=== PATIENT | female | born 1985 | race Caucasian/White ===

== ENCOUNTER 2018-05-24 18:10 | Outpatient (REF) | payer BC, SELFPAY ==
[2018-05-24 22:31] LABS: Bacteria Many HPF (Negative); Epithelial Cells Many HPF (Negative); Other Cells Rare Transitional (Negative); WBC 20-50 HPF (0-5)
[2018-05-24 22:32] LABS: C & S Indicated? No/Sq. Contamination; Crystals Negative HPF (Negative); Mucus Negative (Negative)
== END 2018-05-24 18:30 ==
LOC: NCHCN 18:10
PROVIDERS: PCP Family Medicine; Visit Provider Nurse Practitioner Family
DX: M54.5 Low back pain (principal); R10.9 Unspecified abdominal pain
CPT/HCPCS: 81015

== ENCOUNTER 2018-05-30 00:47 | Outpatient (CLI) | payer BC, SELFPAY ==
--- NOTE | 2018-05-30 08:26 | DI.CT_ITS ---
SYMPTOMS/DIAGNOSIS: SUDDEN ONSET LEFT FLANK PAIN, R10.9, ? NEPHROLITHIASIS ABDOMINAL AND PELVIC CT: CT examination of the abdomen and pelvis was performed without contrast administration. Images obtained through the lung bases are unremarkable. Visualized portions of liver and spleen appear normal, as does the pancreas. Gallbladder and bowel ducts are CT normal. Abdominal aorta is of normal diameter. Small fat-containing umbilical hernia noted. No other significant abdominal wall hernias seen. No evidence of abdominal or pelvic adenopathy. The appendix is normal. No evidence of diverticulitis or bowel obstruction. [employer]GEANT structures appear intact. Adrenals appear normal bilaterally. The left kidney is unremarkable in appearance with no evidence of nephrolithiasis, hydronephrosis or ureterolithiasis. The right kidney contains small nonobstructing calculi. No evidence of right hydronephrosis. No right ureterolithiasis. Urinary bladder appears essentially empty but unremarkable. CONCLUSION: Nonobstructing right nephrolithiasis. No other significant abnormality seen.
== END 2018-05-30 01:07 ==
PROVIDERS: PCP Nurse Practitioner Family; Visit Provider Nurse Practitioner Family
DX: R10.32 Left lower quadrant pain (principal); N20.0 Calculus of kidney
CPT/HCPCS: 74176

== ENCOUNTER 2018-06-21 09:48 | Outpatient (REF) | payer BC, SELFPAY ==
[2018-06-24 11:48] LABS: Sodium, Urine 90 mmol/L
[2018-06-24 11:50] LABS: CLEAVED CELLS 119 mmol/24h (40-220); Total Volume 1325 ml
[2018-06-24 11:53] LABS: Creatinine,Urine 113.68 mg/dL
[2018-06-24 11:58] LABS: Creatinine,24hr Ur 1.48 g/24hr (0.60-1.80); Total Volume 1325 ml
[2018-06-25 09:24] LABS: Magnesium 24hr Urine 82.2 mg/24h (73.0-122.0); Magnesium Random Urine 6.2 mg/dl; Uric Acid Urine 39.7 mg/dl; Uric Acid Urine 24hr 526 mg/24h (250-750)
[2018-06-25 09:31] LABS: Calcium Urine 21.1 mg/dl; Calcium Urine 24 hr 280 mg/24hr (100-300)
== END 2018-06-21 10:08 ==
LOC: NCHCN 09:48
PROVIDERS: PCP Nurse Practitioner Family; Visit Provider Nurse Practitioner Family
DX: N20.0 Calculus of kidney (principal)
CPT/HCPCS: 83735; 81050; 82340; 82570; 84300; 84560

== ENCOUNTER 2018-11-25 00:31 | Outpatient (CLI) | payer BC, SELFPAY ==
--- NOTE | 2018-11-25 14:58 | DI.RAD_ITS ---
SYMPTOMS/DIAGNOSIS: LOW BACK PAIN, M54.9, WORSENING, CHRONIC SINCE FALL LAST YEAR LUMBAR SPINE: Comparison is made with CT of the abdomen and pelvis dated May,. The vertebral bodies are well maintained in height. No spondylolysis or spondylolisthesis is seen. There is L5-S1 disc space narrowing, unchanged from the previous CT. There are minimal osteophytes at this level. The remaining discs are well maintained. IMPRESSION: L5-S1 disc space narrowing.
== END 2018-11-25 00:51 ==
PROVIDERS: PCP Nurse Practitioner Family; Visit Provider Nurse Practitioner Family
DX: M54.5 Low back pain (principal); M51.37 Other intervertebral disc degeneration, lumbosacral region
CPT/HCPCS: 72110

== ENCOUNTER 2018-12-26 14:54 | Outpatient (REF) | payer BC, SELFPAY | END 2018-12-26 15:14 | LOC: NCHCN 14:54 | PROVIDERS: PCP Nurse Practitioner Family; Visit Provider Nurse Practitioner Family | DX: J02.9 Acute pharyngitis, unspecified (principal) | CPT/HCPCS: 87070 ==

== ENCOUNTER 2019-03-11 13:36 | Outpatient (REF) | payer BC, SELFPAY ==
[2019-03-11 22:54] LABS: Abs Immature Grans 0.01 k/cumm (0.0-0.09); Absolute Basophil Count 0.02 k/cumm (0.0-0.2); Absolute Eosinophil Count 0.17 k/cumm (0.0-0.7); Absolute Lymphocyte Count 2.19 k/cumm (1.2-3.4); Absolute Monocyte Count 0.42 k/cumm (0.11-0.7); Absolute Neutrophil Count 3.12 k/cumm (1.2-6.7); Basophils % 0.3; Eosinophils % 2.9; HCT 45.1 % (36.0-46.0); HGB 15.1 g/dL (12.0-15.5); Immature Grans % 0.2; Lymphocytes % 36.9; Mean Corp. HGB Concentration 33.5 g/dL (32.0-36.0); Mean Corpuscular Volume 86.6 fL (80-95); Mean Platelet Volume 11.2 fL (8.0-11.0); Monocytes % 7.1; Neutrophils % 52.6; Platelet Count 255 x1000/uL (130-400); RBC 5.21 m/cumm (4.00-5.20); RBC Distribution Width 13.1 % (11.7-14.6); White Blood Cell Count 5.93 k/cumm (4.4-10.8)
[2019-03-11 23:33] LABS: ALT 36 U/L (12-78); AST 16 U/L (15-37); Alkaline Phosphatase 70 U/L (46-116); Anion Gap 10.7 mmol/L (3-11); BUN 14 mg/dL (7-18); Bilirubin, Total 0.2 mg/dL (0.2-1.0); CO2 25.3 mmol/L (21.0-32.0); CREATININE 0.95 mg/dL (0.55-1.02); Calcium 9.4 mg/dL (8.5-10.1); Chloride 103 mmol/L (98-107); Glucose 94 mg/dL (70-100); Sodium 139 mmol/L (136-145); Total Protein 7.3 g/dL (6.4-8.2)
== END 2019-03-11 13:56 ==
LOC: NCHCN 13:36
PROVIDERS: PCP Nurse Practitioner Family; Visit Provider Nurse Practitioner Family
DX: R51 Headache (principal)
CPT/HCPCS: 80053; 85025

== ENCOUNTER 2019-03-18 15:32 | Outpatient (REF) | payer BC, SELFPAY ==
[2019-03-18 20:09] LABS: ESR 11 mm/hr (0-20)
[2019-03-20 10:57] LABS: Lyme Ab w Rflx to Lyme Confirm Negative
== END 2019-03-18 15:52 ==
LOC: NCHCN 15:32
PROVIDERS: PCP Nurse Practitioner Family; Visit Provider Nurse Practitioner Family
DX: R51 Headache (principal)
CPT/HCPCS: 85652; 86618

== ENCOUNTER 2019-03-24 01:28 | Outpatient (CLI) | payer BC, SELFPAY ==
--- NOTE | 2019-03-24 08:45 | DI.MRI_ITS ---
SYMPTOM/DIAGNOSIS: HEADACHE R51, VISUAL DISTURBANCES/CHANGES BRAIN MRI: 03/24 MRI examination of the brain was performed according to the usual protocol. Ventricular system is normal in appearance. No signal abnormality identified in the brain. There is normal flow void in the [place] vasculature. The orbital and temporal bone structures appear intact. Diffusion weighted imaging is within normal limits with no evidence of cerebral infarction. Susceptibility weighted imaging shows no evidence of hemorrhage. CONCLUSION: Normal brain MRI.
== END 2019-03-24 01:48 ==
PROVIDERS: PCP Nurse Practitioner Family; Visit Provider Nurse Practitioner Family
DX: R51 Headache (principal); H53.9 Unspecified visual disturbance
CPT/HCPCS: 70551

== ENCOUNTER 2019-06-05 14:02 | Outpatient (REF) | payer BC, SELFPAY ==
[2019-06-06 13:46] LABS: Chlamydia Result Negative (Negative); GC Result Negative (Negative); Specimen Description CERVIX
== END 2019-06-05 14:22 ==
LOC: LBN 14:02
PROVIDERS: PCP Nurse Practitioner Family; Visit Provider Nurse Practitioner Family
DX: Z11.3 Encounter for screening for infections with a predominantly sexual mode of transmission (principal)
CPT/HCPCS: 87491; 87591

== ENCOUNTER 2020-01-02 10:25 | Outpatient (REF) | payer BC, SELFPAY ==
[2020-01-02 19:57] LABS: Calculated LDL 68 mg/dL (<100); Cholesterol 129 mg/dL (<200); Glucose 87 mg/dL (74-106); HDL Cholesterol 47 mg/dL (40-60); Triglyceride 72 mg/dL (<150)
== END 2020-01-02 10:45 ==
LOC: NCHCN 10:25
PROVIDERS: PCP Nurse Practitioner Family; Visit Provider Nurse Practitioner Family
DX: Z00.00 Encounter for general adult medical examination without abnormal findings (principal); R05 Cough; J30.2 Other seasonal allergic rhinitis
CPT/HCPCS: 80061; 82947

== ENCOUNTER 2020-06-03 18:27 | Outpatient (REF) | payer BC, SELFPAY ==
[2020-06-08 14:17] LABS: Patient Race White; SARS-CoV-2 RNA Undetected (Undetected); SARS-CoV-2 Specimen Source Nasal
== END 2020-06-03 18:47 ==
LOC: NCHCN 18:27
PROVIDERS: PCP Nurse Practitioner Family; Visit Provider Nurse Practitioner Family
DX: R05 Cough (principal); Z11.59 Encounter for screening for other viral diseases
CPT/HCPCS: U0003

== ENCOUNTER 2020-06-21 12:33 | Outpatient (REF) | payer BC, SELFPAY ==
[2020-06-24 16:58] LABS: Patient Race White; SARS-CoV-2 RNA Undetected (Undetected); SARS-CoV-2 Specimen Source Nasal
== END 2020-06-21 12:53 ==
LOC: NCHCN 12:33
PROVIDERS: PCP Nurse Practitioner Family; Visit Provider Nurse Practitioner Family
DX: R53.83 Other fatigue (principal); J02.9 Acute pharyngitis, unspecified
CPT/HCPCS: U0003; 87081

== ENCOUNTER 2020-11-10 12:42 | Outpatient (REF) | payer BC, SELFPAY ==
[2020-11-10 17:44] LABS: Abs Immature Grans 0.02 10^3/uL (0.0-0.06); Absolute Basophil Count 0.02 10^3/uL (0.0-0.2); Absolute Eosinophil Count 0.17 10^3/uL (0.0-0.7); Absolute Lymphocyte Count 1.86 10^3/uL (1.2-3.4); Absolute Monocyte Count 0.31 10^3/uL (0.1-0.8); Absolute Neutrophil Count 5.26 10^3/uL (1.2-6.7); Basophils % 0.3; Eosinophils % 2.2; HCT 43.5 % (36.0-46.0); HGB 14.8 g/dL (11.2-15.7); Immature Grans % 0.3; Lymphocytes % 24.3; MCH 29.5 pg (27.0-33.0); MCV 86.7 fL (80-95); MPV 10.9 fL (8.0-11.0); Monocytes % 4.1; Neutrophils % 68.8; Nucleated RBC 0 %; Platelet Count 235 10^3/uL (130-400); RBC 5.02 10^6/uL (3.93-5.22); RDW 12.2 % (11.7-14.6); RDW-SD 38.7 fL; WBC 7.64 10^3/uL (4.4-10.8)
[2020-11-10 18:17] LABS: Hemoglobin A1C 5.3 % (<5.7)
[2020-11-11 04:40] LABS: Vitamin D 25 Total 14.7 ng/mL (30-100)
== END 2020-11-10 12:43 | disposition home or self-care (01) ==
LOC: NCHCN 12:42
PROVIDERS: PCP Nurse Practitioner Family; Visit Provider Nurse Practitioner Family
DX: R53.83 Other fatigue (principal); F41.9 Anxiety disorder, unspecified
CPT/HCPCS: 82306; 83036; 84443; 85025

== ENCOUNTER 2021-03-28 13:33 | Outpatient (CLI) | payer BC, SELFPAY ==
[2021-03-28 12:10] LABS: Kit/Specimen SENT
[2021-03-28 12:20] LABS: Abs Immature Grans 0.03 10^3/uL (0.0-0.06); Absolute Basophil Count 0.01 10^3/uL (0.0-0.2); Absolute Eosinophil Count 0.15 10^3/uL (0.0-0.7); Absolute Lymphocyte Count 1.87 10^3/uL (1.2-3.4); Absolute Monocyte Count 0.32 10^3/uL (0.1-0.8); Absolute Neutrophil Count 5.49 10^3/uL (1.2-6.7); Basophils % 0.1; Eosinophils % 1.9; HGB 13.4 g/dL (11.2-15.7); Immature Grans % 0.4; Lymphocytes % 23.8; MCH 29.8 pg (27.0-33.0); MCHC 33.5 % (32.0-36.0); MCV 89.1 fL (80-95); MPV 10.2 fL (8.0-11.0); Monocytes % 4.1; Neutrophils % 69.7; Nucleated RBC 0 %; Platelet Count 189 10^3/uL (130-400); RBC 4.49 10^6/uL (3.93-5.22); RDW 12.7 % (11.7-14.6); RDW-SD 41.6 fL; WBC 7.87 10^3/uL (4.4-10.8)
[2021-03-28 12:21] LABS: Glucose,1 Hr (Glucola) 254 mg/dL (80-140)
[2021-03-28 14:44] LABS: TSH (W/Ref FT4) 1.83 uIU/mL (0.36-3.74)
[2021-03-29 09:01] LABS: Hepatitis C Ab w Rflx HCV PCR Negative (Negative)
[2021-03-29 11:23] LABS: Rubella IgG Ab (UVM) Positive (See Note); Varicella IgG Antibody Positive (See Note)
[2021-03-29 12:03] LABS: Hepatitis B Surface Ag Negative (Negative)
[2021-03-29 12:37] LABS: HIV-1/2 Ag & Ab Screen Negative (Negative)
[2021-03-31 10:11] LABS: Syphilis Total Ab w/Reflex Nonreactive (Nonreactive)
[2021-04-01 15:15] LABS: Result Summary NEGATIVE; Specimen WB Whole Blood
== END 2021-03-28 13:34 | disposition home or self-care (01) ==
LOC: LBO 13:35
PROVIDERS: PCP Nurse Practitioner Family; Visit Provider Advanced Practice Midwife
DX: O99.341 Other mental disorders complicating pregnancy, first trimester (principal); F41.9 Anxiety disorder, unspecified; Z11.4 Encounter for screening for human immunodeficiency virus [HIV]; Z11.59 Encounter for screening for other viral diseases; Z01.84 Encounter for antibody response examination; Z3A.12 12 weeks gestation of pregnancy; Z36.89 Encounter for other specified antenatal screening
CPT/HCPCS: 82950; 86787; 86803; 86850; 86900; 86901; 87340; 87389; 81220; 84443; 85025; 86762; 86780; 87480; 87510; 87660

== ENCOUNTER 2021-03-28 17:52 | Outpatient (REF) | payer BC, SELFPAY ==
[2021-03-28 17:17] LABS: *AMPHETAMINES SCREEN URINE Negative (Negative); *BARBITURATES SCREEN URINE Negative (Negative); *BENZODIAZEPINES SCREEN URINE Negative (Negative); Cannabinoids THC Negative (Negative); Cocaine Screen,Urine Negative (Negative); METHADONE URINE SCREEN Negative (Negative); OPIATES URINE SCREEN Negative (Negative)
[2021-03-28 17:30] LABS: Tricyclic Antidepressants Negative (Negative)
[2021-03-29 15:28] LABS: Chlamydia Result Negative (Negative); GC Result Negative (Negative)
[2021-04-01 13:15] LABS: Buprenorphine Negative ng/mL (Cutoff: 5.0); Norbuprenorphine Negative ng/mL (Cutoff: 2.5)
== END 2021-03-28 17:53 | disposition home or self-care (01) ==
LOC: LBN 17:52
PROVIDERS: PCP Nurse Practitioner Family; Visit Provider Advanced Practice Midwife
DX: Z34.91 Encounter for supervision of normal pregnancy, unspecified, first trimester (principal); Z11.3 Encounter for screening for infections with a predominantly sexual mode of transmission; Z3A.12 12 weeks gestation of pregnancy
CPT/HCPCS: 80307; 87491; 87591; 87086

== ENCOUNTER 2021-04-01 15:21 | Outpatient (CLI) | payer BC, SELFPAY ==
[2021-04-01 16:13] LABS: Hemoglobin A1C 5.3 % (<5.7)
== END 2021-04-01 15:22 | disposition home or self-care (01) ==
LOC: LBO 15:22 → LBN 19:58
PROVIDERS: PCP Nurse Practitioner Family; Visit Provider Obstetrics & Gynecology
DX: O24.911 Unspecified diabetes mellitus in pregnancy, first trimester; Z3A.13 13 weeks gestation of pregnancy
CPT/HCPCS: 36415; 83036; 87086

== ENCOUNTER 2021-04-08 01:42 | Outpatient (CLI) | payer BC, SELFPAY ==
--- NOTE | 2021-04-08 14:00 | NS.NUTBLAN_ITS ---
Jocelyn was referred for Medical Nutrition Therapy fr GDM at 14 weeks. Most recent A1C wnl indicating optimal glycemic control prior to . No family hx of DM. Jocelyn has logged her meals and blood sugars. Some elevated post prandial levels noted but overall well controlled with diet and exercise. Session today focused on how to follow a well balanced meal plan during and how/when to measure blood sugars. Meal plans provided. Encoruaged daily walking of 20-30 minutes. Contact information provided for follow up prn. Will be available as needed.
== END 2021-04-08 01:43 | disposition home or self-care (01) ==
LOC: DS 01:42
PROVIDERS: PCP Nurse Practitioner Family; Visit Provider Dietitian, Registered
DX: O24.420 Gestational diabetes mellitus in childbirth, diet controlled (principal); Z3A.14 14 weeks gestation of pregnancy; Z71.3 Dietary counseling and surveillance
CPT/HCPCS: 97802

== ENCOUNTER 2021-07-15 01:07 | Outpatient (CLI) | payer BC, SELFPAY ==
[2021-07-15 16:32] LABS: HCT 38.4 % (36.0-46.0); MCH 30.4 pg (27.0-33.0); MCHC 33.9 % (32.0-36.0); MCV 89.9 fL (80-95); MPV 9.9 fL (8.0-11.0); Platelet Count 181 10^3/uL (130-400); RBC 4.27 10^6/uL (3.93-5.22); RDW 12.7 % (11.7-14.6); RDW-SD 41.7 fL
== END 2021-07-15 01:08 | disposition home or self-care (01) ==
LOC: LBO 01:07
PROVIDERS: PCP Nurse Practitioner Family; Visit Provider Obstetrics & Gynecology Gynecology
DX: Z34.93 Encounter for supervision of normal pregnancy, unspecified, third trimester (principal)
CPT/HCPCS: 36415; 85027

== ENCOUNTER 2021-07-28 02:22 | Outpatient (CLI) | payer BC, SELFPAY ==
--- NOTE | 2021-07-28 07:00 | DI.US_ITS ---
Exam(s) US OB MAREK WEIGHT EXAM: US OB MAREK WEIGHT CLINICAL HISTORY: diabetes in ,o24.919. TECHNIQUE: Transabdominal obstetrical ultrasound performed. COMPARISON: US US OB 2-3 TRIMESTER from 05/13/2021 FINDINGS:: Number of fetuses: One. position: Vertex. Placental location: Anterior. No evidence of previa. BIOMETRIC DATA: BPD: 79mm = 31+4 weeks HC: 294mm = 32+3 week AC: 271mm = 31+1 weeks FL: 59 mm = 30+ 6 weeks EFW: 1726 Gms = 66% Composite Age: 31 weeks 4 days EDC: 25 September 2021 Heart Rate: 139BPM Amniotic fluid index: 17.7 cm. Amount of fluid is within normal limits. IMPRESSION: size and weight are within the expected range. DATA REPOSITORY:
== END 2021-07-28 02:42 ==
PROVIDERS: PCP Nurse Practitioner Family; Visit Provider Obstetrics & Gynecology
DX: O24.913 Unspecified diabetes mellitus in pregnancy, third trimester (principal); Z3A.31 31 weeks gestation of pregnancy
CPT/HCPCS: 76816

== ENCOUNTER 2021-08-29 01:50 | Outpatient (CLI) | payer BC, SELFPAY ==
--- NOTE | 2021-08-29 08:15 | DI.US_ITS ---
Exam(s) US OB MAREK WEIGHT EXAM: US OB MAREK WEIGHT CLINICAL HISTORY: size greater than dates,z34.03. TECHNIQUE: Transabdominal obstetrical ultrasound was performed. COMPARISON: US US OB MAREK WEIGHT from 07/28/2021 FINDINGS: There is a single viable intrauterine gestation with cardiac activity identified- bpm The fetus is presently in cephalic position with spine pointing posteriorly towards the materna l spine. Amniotic fluid: There is mild polyhydramnios, with MAREK= 25.4 cm. Placental location: The placenta is anterior grade 2,with no evidence of placenta previa.Distance fro m the tip of placenta to the internal cervical os is 10 cm on today's study Dating parameters place this at approximately 36 weeks and 5 days gestational age, implying ABY of September 21, 2021. BPD measures 36 weeks and 4 days HC measures 39 weeks and 0 days AC measures 36 weeks and 1 day FL measures not given Estimated weight is 2853 gm-6 pound 5 ounces Fetus is at the 78th percentile on the Hadlock scale. IMPRESSION:: Viable 3rd trimester gestation, as described above. Fetus is at the 78th percentile the Hadlock scale DATA REPOSITORY:
== END 2021-08-29 02:10 ==
PROVIDERS: PCP Nurse Practitioner Family; Visit Provider Obstetrics & Gynecology Gynecology
DX: Z3A.36 36 weeks gestation of pregnancy; O40.3XX0 Polyhydramnios, third trimester, not applicable or unspecified; O26.843 Uterine size-date discrepancy, third trimester
CPT/HCPCS: 76816

== ENCOUNTER 2021-09-08 07:51 | Outpatient (CLI) | payer BC, SELFPAY ==
[2021-09-08 13:29] VITALS: BP 122/80; PULSE 82; TEMP 36.7
[2021-09-08 13:51] VITALS: BP 122/80; PULSE 82; TEMP 36.7
--- NOTE | 2021-09-08 14:09 | W.OBNST ---
Date of service: 09/08/21 Time of Service: 14:10 NST Evaluation Reason for NST Reasons for Nonstress Test: GDM-DIET CONTROLLED Gestational Age Gestational Age in Weeks and Days: 36 Weeks and 2Days Test and Monitor Explained Test/Monitor Explained: Test Explained, Monitor Explained and Patient Verbalized Understanding Vital Signs Blood Pressure: 122/80 Pulse: 82 Temperature: 98.0 F NST Information Date on Monitor: 09/08/21 Time on Monitor: 13:29 Date off Monitor: 09/08/21 Time off Monitor: 13:50 Total Time on Monitor: 21 NST Interventions: PO Hydration Contraction Frequency: irritability, contractions Q6-8 NST Evaluation Patient States Movement: Present FHR Baseline: 150 Variability: Moderate 6-25 bpm Accelerations: 15x15 Decelerations: None NST Results: Reactive Note NST Note Note: Reactive NST, category 1 strip. Occasional irregular contractions. Group B strep culture performed. Follow-up for twice weekly surveillance and weekly OB visits NST Reviewed and Verified by: Magy Espinoza
[2021-09-08 14:10] VITALS: BP 122/80; PULSE 82; TEMP 36.7
== END 2021-09-08 14:06 | disposition home or self-care (01) ==
LOC: BCD 07:55 → OBS 13:25
PROVIDERS: PCP Nurse Practitioner Family; Visit Provider Obstetrics & Gynecology
DX: O24.410 Gestational diabetes mellitus in pregnancy, diet controlled (principal); Z36.85 Encounter for antenatal screening for Streptococcus B; Z3A.36 36 weeks gestation of pregnancy
CPT/HCPCS: 59025

== ENCOUNTER 2021-09-08 18:14 | Outpatient (REF) | payer BC, SELFPAY | END 2021-09-08 18:15 | disposition home or self-care (01) | LOC: LBN 18:14 | PROVIDERS: PCP Nurse Practitioner Family; Visit Provider Obstetrics & Gynecology | DX: Z34.93 Encounter for supervision of normal pregnancy, unspecified, third trimester (principal) | CPT/HCPCS: 87081 ==

== ENCOUNTER 2021-09-12 15:21 | Outpatient (CLI) | payer BC, SELFPAY ==
[2021-09-12 15:34] VITALS: BP 117/76; PULSE 89; TEMP 36.8
[2021-09-12 16:21] VITALS: BP 117/76; PULSE 89; TEMP 36.8
--- NOTE | 2021-09-12 16:21 | W.OBNST ---
Date of service: 09/12/21 Time of Service: 16:21 NST Evaluation Reason for NST Reasons for Nonstress Test: GDM-DIET CONTROLLED Gestational Age Gestational Age in Weeks and Days: 36 Weeks and 6Days Test and Monitor Explained Test/Monitor Explained: Test Explained, Monitor Explained and Patient Verbalized Understanding Vital Signs Blood Pressure: 117/76 Pulse: 89 Temperature: 98.2 F NST Information Date on Monitor: 09/12/21 Time on Monitor: 15:19 Date off Monitor: 09/12/21 Time off Monitor: 15:53 Total Time on Monitor: 34 NST Interventions: PO Hydration NST Evaluation Patient States Movement: Present FHR Baseline: 145 Variability: Moderate 6-25 bpm Accelerations: 15x15 NST Results: Reactive Note NST Note Note: Reactive NST, category 1 strip. Follow-up for twice weekly nonstress test. NST Reviewed and Verified by: Magy Espinoza
== END 2021-09-12 16:12 | disposition home or self-care (01) ==
LOC: BCD 15:22 → OBS 15:33
PROVIDERS: PCP Nurse Practitioner Family; Visit Provider Obstetrics & Gynecology
DX: O24.410 Gestational diabetes mellitus in pregnancy, diet controlled (principal); Z3A.36 36 weeks gestation of pregnancy
CPT/HCPCS: 59025

== ENCOUNTER 2021-09-16 06:49 | Outpatient (CLI) | payer BC, SELFPAY ==
[2021-09-16 10:14] VITALS: BP 113/76; PULSE 86; TEMP 37.1
[2021-09-16 10:20] VITALS: BP 113/76; PULSE 86
[2021-09-16 10:38] VITALS: BP 113/76; PULSE 86; TEMP 37.1
[2021-09-16 11:08] LABS: HCT 38.7 % (36.0-46.0); MCHC 33.6 % (32.0-36.0); MCV 92.4 fL (80-95); MPV 10.3 fL (8.0-11.0); Platelet Count 158 10^3/uL (130-400); RBC 4.19 10^6/uL (3.93-5.22); RDW 13.5 % (11.7-14.6); RDW-SD 46.1 fL
[2021-09-16 11:20] LABS: COMMENT (LAB VIEW ONLY) 74.66 mg/dL; PROTEIN 10.1 mg/dL; Prot/Crea Ur Ratio 0.13
[2021-09-16 11:23] LABS: ALT 32 U/L (14-59); AST 25 U/L (15-37); Albumin 2.4 g/dL (3.4-5.0); Alkaline Phosphatase 131 U/L (46-116); Anion Gap 8.5 mmol/L (3-11); BUN 12 mg/dL (7-18); Bilirubin, Total 0.2 mg/dL (0.2-1.0); CO2 21.5 mmol/L (21.0-32.0); CREATININE 0.7 mg/dL (0.55-1.02); Calcium 8.6 mg/dL (8.5-10.1); Chloride 103 mmol/L (98-107); Glucose 94 mg/dL (74-106); Potassium 3.8 mmol/L (3.5-5.1); Sodium 133 mmol/L (136-145); Uric Acid 3.8 mg/dL (2.6-6.0)
--- NOTE | 2021-09-16 11:26 | W.OBNST ---
Date of service: 09/16/21 Time of Service: 11:26 NST Evaluation Reason for NST Reasons for Nonstress Test: GDM-DIET CONTROLLED Gestational Age Gestational Age in Weeks and Days: 37 Weeks and 4Days Test and Monitor Explained Test/Monitor Explained: Test Explained, Monitor Explained and Patient Verbalized Understanding Vital Signs Blood Pressure: 113/76 Pulse: 86 Temperature: 98.7 F Urine Results Urine Protein: Positive Urine Ketones: Positive Urine Glucose: Negative Urine Blood: Negative NST Information Date on Monitor: 09/16/21 Time on Monitor: 10:17 Date off Monitor: 09/16/21 Time off Monitor: 10:38 Total Time on Monitor: 21 NST Interventions: PO Hydration and Notify Provider Contraction Frequency: x1 NST Evaluation Patient States Movement: Present FHR Baseline: 140 Variability: Moderate 6-25 bpm Accelerations: 15x15 Decelerations: None NST Results: Reactive Note NST Note Note: Reactive NST, category 1 strip. NST Reviewed and Verified by: Magy Espinoza
[2021-09-16 11:27] VITALS: BP 113/76; PULSE 86; TEMP 37.1
[2021-09-17 03:21] VITALS: BP 131/86; PULSE 72
== END 2021-09-16 11:34 | disposition home or self-care (01) ==
LOC: BCD 06:52 → NUR 10:11 → OBS 10:12
PROVIDERS: PCP Nurse Practitioner Family; Visit Provider Obstetrics & Gynecology
DX: O24.415 Gestational diabetes mellitus in pregnancy, controlled by oral hypoglycemic drugs (principal); Z3A.37 37 weeks gestation of pregnancy
CPT/HCPCS: 59025; 36415; 80053; 85027; 86900; 86901; 82565; 84156; 84550

== ENCOUNTER 2021-09-20 10:22 | Outpatient (CLI) | payer BC, SELFPAY ==
[2021-09-20 15:05] VITALS: BP 119/80; PULSE 89; TEMP 36.8
[2021-09-20 15:10] VITALS: BP 119/80; PULSE 81
[2021-09-20 15:13] VITALS: BP 119/80; PULSE 89; TEMP 36.8
[2021-09-20 15:32] VITALS: BP 119/80; PULSE 89; TEMP 36.8
--- NOTE | 2021-09-20 15:32 | W.OBNST ---
Date of service: 09/20/21 Time of Service: 15:32 NST Evaluation Reason for NST Reasons for Nonstress Test: GDM-DIET CONTROLLED Gestational Age Gestational Age in Weeks and Days: 38 Weeks and 0Days Test and Monitor Explained Test/Monitor Explained: Test Explained, Monitor Explained and Patient Verbalized Understanding Vital Signs Blood Pressure: 119/80 Pulse: 89 Temperature: 98.2 F NST Information Date on Monitor: 09/20/21 Time on Monitor: 15:00 NST Interventions: PO Hydration NST Evaluation Patient States Movement: Present FHR Baseline: 145 Variability: Moderate 6-25 bpm Accelerations: 15x15 Decelerations: None NST Results: Reactive Note NST Note Note: NST reactive, category 1 strip. Continue surveillance. NST Reviewed and Verified by: Magy Espinoza
== END 2021-09-20 15:35 | disposition home or self-care (01) ==
LOC: LBN 10:24 → BCD 10:30 → OBS 14:46
PROVIDERS: PCP Nurse Practitioner Family; Visit Provider Obstetrics & Gynecology
DX: O24.410 Gestational diabetes mellitus in pregnancy, diet controlled (principal); Z3A.38 38 weeks gestation of pregnancy
CPT/HCPCS: 59025

== ENCOUNTER 2021-09-22 08:59 | Outpatient (CLI) | payer BC, SELFPAY ==
[2021-09-22 14:35] VITALS: BP 113/78; PULSE 90; TEMP 36.8
[2021-09-22 14:58] VITALS: BP 113/78; PULSE 90; TEMP 36.8
--- NOTE | 2021-09-27 16:42 | W.OBNST ---
Date of service: 09/22/21 Time of Service: 16:42 NST Evaluation Reason for NST Reasons for Nonstress Test: CHRONIC MATERNAL DM Gestational Age Gestational Age in Weeks and Days: 39 Weeks and 0Days Test and Monitor Explained Test/Monitor Explained: Patient Verbalized Understanding Vital Signs Blood Pressure: 113/78 Pulse: 90 Temperature: 98.2 F NST Information Date on Monitor: 09/22/21 Time on Monitor: 14:32 Date off Monitor: 09/22/21 Time off Monitor: 15:07 Total Time on Monitor: 35 NST Interventions: PO Hydration and Notify Provider NST Evaluation Patient States Movement: Present FHR Baseline: 140 Variability: Moderate 6-25 bpm Accelerations: 15x15 Decelerations: None NST Results: Reactive Note Presentation NST Note Note: Pt seen on BC for eval of reactive NST. GBS RV Cx obtained. SVE: Vertex presentation confirmed by bedside u/s. station -3. Plan made for cervical ripening overnight next week with Oxytocin augmentation of labor following day. Will return on Sunday for routine NST. Her glycemic control has been excellent. NST Reviewed and Verified by: Germaine Clark
[2021-09-27 16:43] VITALS: BP 113/78; PULSE 90; TEMP 36.8
== END 2021-09-22 15:30 | disposition home or self-care (01) ==
LOC: BCD 09:06 → OBS 14:56
PROVIDERS: PCP Nurse Practitioner Family; Visit Provider Obstetrics & Gynecology Gynecology
DX: O24.113 Pre-existing type 2 diabetes mellitus, in pregnancy, third trimester (principal); Z3A.39 39 weeks gestation of pregnancy; Z36.85 Encounter for antenatal screening for Streptococcus B
CPT/HCPCS: 59025

== ENCOUNTER 2021-09-27 07:44 | Outpatient (CLI) | payer BC, SELFPAY ==
[2021-09-27 09:17] VITALS: BP 122/84; PULSE 97; TEMP 36.1
[2021-09-27 09:21] VITALS: BP 122/84; PULSE 97
--- NOTE | 2021-09-28 10:20 | W.OBNST ---
Date of service: 09/27/21 Time of Service: 09:00 NST Evaluation Reason for NST Reasons for Nonstress Test: GDM-DIET CONTROLLED Gestational Age Gestational Age in Weeks and Days: 39 Weeks and 0Days Test and Monitor Explained Test/Monitor Explained: Test Explained and Monitor Explained Vital Signs Blood Pressure: 122/84 Pulse: 97 Temperature: 97.0 F Urine Results Urine Protein: Negative Urine Ketones: Positive Urine Glucose: Negative Urine Blood: Negative NST Information Date on Monitor: 09/27/21 Time on Monitor: 09:18 Date off Monitor: 09/27/21 Time off Monitor: 09:46 Total Time on Monitor: 28 NST Interventions: PO Hydration NST Evaluation Patient States Movement: Present FHR Baseline: 150 Variability: Moderate 6-25 bpm Accelerations: 15x15 Decelerations: None NST Results: Reactive Note NST Note Note: 39wks here for NST for DM - very well controlled with diet. Plans induction tomorrow. Cx:/-3, membranes stripped. NST Reviewed and Verified by: Elvira Real
[2021-09-28 10:22] VITALS: BP 122/84; PULSE 97; TEMP 36.1
== END 2021-09-27 10:00 | disposition home or self-care (01) ==
LOC: BCD 07:48 → OBS 09:14
PROVIDERS: PCP Nurse Practitioner Family; Visit Provider Obstetrics & Gynecology
DX: O24.410 Gestational diabetes mellitus in pregnancy, diet controlled (principal); Z3A.39 39 weeks gestation of pregnancy
CPT/HCPCS: 59025

== ENCOUNTER 2021-09-28 19:55 | Inpatient (IN) | payer BC, SELFPAY ==
[2021-09-28 20:26] VITALS: BP 135/83; PULSE 98
--- NOTE | 2021-09-28 21:25 | HPE_ITS ---
Date of service: 09/28/21 Time of Service: 21:25 Assessment and Plan Assessment and plan (1) GBS (group B Streptococcus carrier), +RV culture, currently : Status: Acute Assessment and plan: We will begin prophylactic penicillin when oxytocin infusion is initiated (2) Encounter for induction of labor: Status: Acute Assessment and plan: The plan is to perform cervical ripening using a transcervical balloon catheter overnight and begin oxytocin titration at 6:00 to 2021 OB-HPI Labor/Delivery History of Present Illness Reason for Visit: IUP at 39W1D EGA, diet-controlled GDM Chief Complaint: Scheduled Induction of Labor Indication for Induction: Gestational Diabetes. ABY Calculator Estimated Delivery Date Method Current WG Current Estimate 10/04/21 LMP (Certain) 39w 1d Other Estimates 10/05/21 Ultrasound #1 39w 0d History of Present Expected Delivery Route/Plan - FOB/ - Cem Salazar (first child) Pre-gestational DM dx'ed at 13 weeks Specific Issues/Plan 1. Early glucose test due to BMI 36: 245 = pre-gest DM at 13 wks; - HgbA1C done at 13 wks = 5.3. 1st and 2nd trimester: CBGs nl. - Low dose ASA at 12 weeks due to Nulliparity and BMI 36 - Growth sonos. 08/29/21. EFW 78%tile. Wt 2853gm, 6lb5oz. - NSTs @32wks 2. [place]/CF screen is negative 3. Both pt and FOB are COVID vaccinated 4. BV+ at initial OB; Rx'ed Flagyl 500 mg PO BID x7 days 5. [facility], wears specific [employer] Garment under clothing, plans to remove in delivery 6. Anxiety - 1st trimester-Sertraline 75 mg. 2nd trimester: Sertraline increased 100 mg. Good response. 7. GBS positive Assessment: History Reviewed & Current Narrative: [facility] first trimes ter. Total weight gain during -6lbs. 1st trimester BP 123/89, 3rd trimester BP 113/70. She has had twice weekly NSTs since 36 weeks estimated stational age secondary to diet-controlled gestational diabetes Informed Consent Informed Consent: Induction of Labor (I discussed cervical ripening with Villafuerte balloon followed by oxytocin augmentation) and Risk,Benefits,Alternatives Discussed Review of Systems Eyes Eyes: Reports system reviewed and no additional complaints, except as documented Genitourinary Comments: She reports activity. Occasional contractions. No rupture membranes. PFSH All Active Problems (Updated 09/28/21 @ 21:36 by Germaine Clark MD) Encounter for induction of labor (Acute) GBS (group B Streptococcus carrier), +RV culture, currently (Acute) Encounter for supervision of normal first , third trimester (Acute) Diabetes in (Acute) Right hip pain (Acute) History of low back pain (Acute) Adult BMI 35.0-35.9 kg/sq m (Acute) Nearsightedness (Acute) Anxiety (Chronic) (Acute) Missed menses (Acute) IUD surveillance (Acute) mitchMar 2019 Bee sting allergy (Acute) Migraine (Chronic) Medical History Bee sting allergy IUD surveillance mitchMar 2019 Migraine Surgical History H/O knee surgery [place] teeth extracted Family History (Updated 03/28/21 @ 10:04 by Alicai Cole CNM) Mother VTE (venous thromboembolism) Celiac disease Hypertension Depression Hyperlipidemia Father Depression Hypertension Maternal Grandmother Stroke Social History Smoking/Tobacco Use Status: Never Smoking risk assessment performed?: Yes Alcohol Intake: never Drug use: Never Sexually active: Yes Current gender identity: female Do you feel safe at home: Yes Do you feel safe in your relationship?: Yes Female Reproductive History Menstrual Age of Menarche: 14 Duration of menses: 3-5 days control method: none History History 1 Para 0 Hx # Term Pregnancies 0 Multiple births 0 Hx # Pregnancies 0 Ectopic pregnancies 0 AB induced 0 Hx Number of Living Children 0 AB spontaneous 0 Meds Allergies and Home Medications Allergies Allergy/AdvReac Type Severity Reaction Status Date / Time gluten Allergy Verified 08/26/21 13:59 venom-honey bee Allergy Verified 08/26/21 13:59 avocado AdvReac Topical Verified 08/26/21 13:59 Irritation wasps Allergy Uncoded 08/26/21 13:59 Home Medications Medication Instructions Recorded Confirmed Type epinephrine 0.3 mg/0.3 mL 0.3 mg IM ONCE 03/12/19 09/24/21 History injection, auto-injector vitamin with calcium 1 tab PO DAILY #90 tab 02/09/21 09/24/21 Rx no.72-iron 27 mg-folic acid 1 mg tablet ( Plus (calcium carbonate)) aspirin 81 mg tablet,delayed 81 mg PO DAILY #90 tab 03/28/21 09/24/21 Rx release (Adult Low Dose Aspirin) blood sugar diagnostic (Blood #50 ea 03/28/21 09/24/21 Rx Glucose Test) blood-glucose meter #1 ea 03/28/21 09/24/21 Rx sertraline 50 mg tablet 100 mg PO DAILY #60 tab 05/06/21 09/24/21 Rx blood sugar diagnostic (OneTouch #100 ea 05/23/21 09/24/21 Rx Verio test strips) cholecalciferol (vitamin D3) 25 25 mcg PO DAILY 06/21/21 09/24/21 History mcg (1,000 unit) capsule magnesium oxide 400 mg (241.3 mg 400 mg PO QHS tab 06/21/21 09/24/21 History magnesium) tablet lancets 28 gauge (FreeStyle #100 ea 07/05/21 09/24/21 Rx Lancets) Exam Physical Exam Vital signs: Pulse BP 98 H 135/83 09/28/21 20:26 09/28/21 20:26 Constitutional Constitutional: no acute distress Detailed Labor and Delivery Exam Dilation: 0 Effacement (%): 80 station: -3 Cervix position: posterior Consistency: soft Randle Score: Cervical Points Exam 0 1 2 3 Dilation Closed 1-2cm 3-4 cm 5-6cm Effacement 0-30% 40-50% 60-70% 80% Consistency Firm Medium Soft Station -3 -2 -1,0 +1,+2 Position Posterior Mid Anterior RANDLE Score(Cervical Ripeness Score): 4 Amniotic Membrane Status: Intact Monitor Mode: External Contraction Frequency(min): Occasional Contraction Duration(sec): 50 Contraction Intensity: Mild Fetus A Heart Rate Baseline: 170 Monitor Accelerations: 15 X 15 Monitor Decelerations: None Variability: Moderate (6-25 BPM) Presentation: Cephalic (Can confirmed by bedside ultrasound) Categories: Category I Est. Weight: 8 lb 13.096 oz Est. Weight: 4000 g Results Results Group Beta Strep: Positive Blood Type: O+ Rubella Status: Immune Varicella Immunity: Immune Risk Assessment Risk for Shoulder Dystocia Historical/Initial OB: POSITIVE FOR: Pre- BMI>30; NEGATIVE FOR: Pelvic Abnormality, Previous Shoulder Dystocia or Previous Macrosomia Delivery Plan @ 36wks: 09/08/21 anticipate vaginal delivery at term Risk for Pre-Eclampsia Date Initiated/Initials: 03/28/21 KH Yes, if one or more: NEGATIVE FOR: Hx Pre-E/Gest HTN, Chronic HTN, Multiple Gestation, Pre-gestational DM, Renal Disease, Systemic Lupus or APA Syndrome Yes, if 2 or more: POSITIVE FOR: Nulliparity and BMI>30; NEGATIVE FOR: Age>= 35 yrs, >10yr btwn pregnancies, ethinicty, Mother/Sister w/ Pre-E or Previous IUGR Risk for Post- Hemorrhage Initial: NEGATIVE FOR: Multiple Gestation, Previous PPH, Known Clotting Deficiency, Grand Multiparity or Anticoagulation Counseled re: Active Management: Yes Date/Initials: 09/08/21 Risks Reviewed Risks Reviewed Upon Admission: Yes
[2021-09-28 21:30] VITALS: BP 135/83; PULSE 98; RESP 18; TEMP 36.7; O2SAT 99
--- NOTE | 2021-09-28 21:38 | W.PM.OBNL1 ---
Date of service: 09/28/21 Time of Service: 21:38 Informed Consent Informed Consent: Induction of Labor (I discussed cervical ripening with Villafuerte balloon followed by oxytocin augmentation) and Risk,Benefits,Alternatives Discussed Objective Temp Pulse Resp BP Pulse Ox 98.1 F 98 H 18 135/83 99 09/28/21 21:30 09/28/21 21:30 09/28/21 21:30 09/28/21 21:30 09/28/21 21:30 Procedure Procedures: Cervical Ripening (Double transcervical-balloon placed without difficulty and both balloons inflated 80 cc H2O) Cervical Ripening: Villafuerte Bulb
[2021-09-28 22:00] LABS: HCT 39.8 % (36.0-46.0); HGB 13.5 g/dL (11.2-15.7); MCH 31.5 pg (27.0-33.0); MCHC 33.9 % (32.0-36.0); MCV 92.8 fL (80-95); MPV 10.4 fL (8.0-11.0); Platelet Count 168 10^3/uL (130-400); RBC 4.29 10^6/uL (3.93-5.22); RDW 13.5 % (11.7-14.6); RDW-SD 45.7 fL; WBC 7.94 10^3/uL (4.4-10.8)
[2021-09-28 22:16] LABS: COVID-19 PCR Negative (Negative); Source Nasal/Nares
[2021-09-29] VITALS (31 sets, daily range): BP systolic 105–130; BP diastolic 58–84; PULSE 86–128; RESP 16–18; TEMP 36.2–36.7; O2SAT 89–100; BMI 34.7
[2021-09-29] MEDS: Penicillin G POT. 5,000,000 UNITS in Normal Saline 100 ML 200 UNITS IVPB (06:05)
[2021-09-29] MEDS: Oxytocin/Normal Saline 30 UNIT/500 ML BAG 2 UNITS IV (06:20)
[2021-09-29] MEDS: Lactated Ringers 1,000 ML 125 ML IV ×2 (06:33→12:23)
--- NOTE | 2021-09-29 10:28 | W.PM.PROGNOT ---
Date of Service Date of service: 09/29/21 Time of Service: 10:28 Assessment and Plan Assessment and plan (1) Encounter for induction of labor: Status: Acute Assessment and plan: Continue pitocin and monitoring. Position changes. Subjective Subjective Interval history since last seen: Pt with only slight discomfort with contractions. Sitting on birthing ball and feels more comfortable in that position. On pit. Villafuerte balloon removed at 8:20 and pt was 5cm dilated already. Exam Manual OB Exam: dilated 6, effaced (90%), station -2 and other (AROM with copious clear fluid) Objective Last Vital Signs Temp 98.1 F 09/29/21 08:52 Pulse 91 H 09/29/21 08:52 Resp 16 09/29/21 08:52 BP 105/68 09/29/21 08:52 Pulse Ox 99 09/28/21 21:30 Laboratory Results - last 24 hr 09/28/21 09/28/21 09/28/21 21:17 21:45 21:45 WBC 7.94 RBC 4.29 Hgb 13.5 Hct 39.8 MCV 92.8 MCH 31.5 MCHC 33.9 RDW 13.5 Plt Count 168 MPV 10.4 COVID-19 Source Nasal/Nares SARS-CoV-2 (PCR) Negative Patient ABO/Rh O Positive Antibody Screen NEGATIVE
[2021-09-29] MEDS: Penicillin G POT. 3,000,000 UNITS in Normal Saline 50 ML 100 UNITS IVPB (10:55)
--- NOTE | 2021-09-29 11:34 | W.ANESPRE ---
General Info Date of Service Date Performed: 09/29/21 Height: 5 ft 4 in Weight: 91.626 kg Body Mass Index (BMI): 34.7 Meds Allergies and Home Medications Allergies Allergy/AdvReac Type Severity Reaction Status Date / Time gluten Allergy Verified 09/28/21 21:38 venom-honey bee Allergy Verified 09/28/21 21:38 avocado AdvReac Topical Verified 09/28/21 21:38 Irritation wasps Allergy Uncoded 09/28/21 21:38 Home Medication Medication Instructions Recorded epinephrine 0.3 mg/0.3 mL 0.3 mg IM ONCE 03/12/19 injection, auto-injector vitamin with calcium 1 tab PO DAILY #90 tab 02/09/21 no.72-iron 27 mg-folic acid 1 mg tablet ( Plus (calcium carbonate)) aspirin 81 mg tablet,delayed 81 mg PO DAILY #90 tab 03/28/21 release (Adult Low Dose Aspirin) blood sugar diagnostic (Blood #50 ea 03/28/21 Glucose Test) blood-glucose meter #1 ea 03/28/21 sertraline 50 mg tablet 100 mg PO DAILY #60 tab 05/06/21 blood sugar diagnostic (OneTouch #100 ea 05/23/21 Verio test strips) cholecalciferol (vitamin D3) 25 25 mcg PO DAILY 06/21/21 mcg (1,000 unit) capsule magnesium oxide 400 mg (241.3 mg 400 mg PO QHS tab 06/21/21 magnesium) tablet lancets 28 gauge (FreeStyle #100 ea 07/05/21 Lancets) Current Visit Medications: Current Medications Generic Name Dose Route Start Last Admin Trade Name Tonyq PRN Reason Stop Dose Admin Diphenhydramine HCl 25 mg 09/29/21 11:33 Diphenhydramine 50 Mg/Ml Vial IVP Q6H PRN PRN Persistent pruritis face/trunk Ephedrine Sulfate 5 mg 09/29/21 11:33 Ephedrine 50 Mg/Ml Vial IVP DIRECTED PRN Fentanyl/Ropivacaine 200 ml 09/29/21 11:45 Fentanyl/Ropivacaine 2 Mcg/Ml And 0.1% 200 Ml Cadd Cassette EP DIRECTED ARTURO Ringer's Solution 1,000 mls @ 125 mls/hr 09/29/21 06:00 09/29/21 06:33 IV 125 mls/hr INFUSION ARTURO Administration Oxytocin/Sodium Chloride 30 unit in 500 mls @ 2 mls/hr 09/29/21 06:15 09/29/21 09:43 Pitocin/Normal Saline IV 7 milliunits/min INFUSION ARTURO 7 mls/hr Titration Protocol 2 MILLIUNITS/MIN Penicillin G Potassium 3,000, 50 mls @ 100 mls/hr 09/29/21 10:00 09/29/21 10:55 000 units/ Sodium Chloride IVPB 100 mls/hr Q4H ARTURO Administration Sodium Chloride 500 mls @ 0 mls/hr 09/29/21 06:00 Saline 500ml Bag IV PRN PRN As Directed Ringer's Solution 250 mls @ 500 mls/hr 09/29/21 11:33 IV 09/29/21 12:02 BOLUS ONE IV Miscellaneous Supplies 1 each 09/28/21 21:15 Iv Access IV DIRECTED ARTURO Naloxone HCl 0 mg 09/29/21 11:33 Naloxone 0.4 Mg/Ml Vial IVP DIRECTED PRN Ondansetron HCl 4 mg 09/29/21 11:33 Ondansetron 4 Mg/2 Ml Vial IVP Q6H PRN PRN Nausea Sodium Chloride 0 ml 09/29/21 06:00 Normal Saline Flush 10 Ml Syr IVP PRN PRN Sodium Chloride 0 ml 09/28/21 21:08 Normal Saline Flush 10 Ml Syr IVP PRN PRN PFSH Active Problems Active Problems: Problem Status Onset Code Encounter for induction of labor Z34.90 GBS (group B Streptococcus carrier), +RV culture, currently O99.820 Encounter for supervision of normal first , third trimester Z34.03 Diabetes in O24.919 Right hip pain M25.551 History of low back pain Z87.39 Adult BMI 35.0-35.9 kg/sq m Z68.35 Nearsightedness H52.10 Anxiety F41.9 Z34.90 Missed menses N92.6 IUD surveillance Z30.431 Bee sting allergy Z91.030 Migraine G43.909 Medical History Medical History Bee sting allergy IUD surveillance mitch Mar 2019 Migraine Surgical History Surgical History H/O knee surgery [place] teeth extracted Tobacco Smoking/Tobacco Use Status: Never Passive smoking exposure: No Alcohol Alcohol Intake: never Substance Use Substance use: Never Prental History History 1 Para 0 Hx # Term Pregnancies 0 Multiple births 0 Hx # Pregnancies 0 Ectopic pregnancies 0 AB induced 0 Hx Number of Living Children 0 AB spontaneous 0 Vital Signs and Lab Results Vital Signs Most Recent Vital Signs in EMR: Most Recent Vital Signs Temp Pulse Resp BP Pulse Ox 36.7 C 91 H 16 105/68 99 09/29/21 08:52 09/29/21 08:52 09/29/21 08:52 09/29/21 08:52 09/28/21 21:30 Lab Results Result Diagrams: 09/28/21 21:45 Blood Type / Crossmatch: Patient ABO/Rh O Positive 09/28/21 Antibody Screen NEGATIVE 09/28/21 Complete Blood Count: White Blood Count 7.94 10^3/uL (4.4-10.8) 09/28/21 21:45 09/28/21 Red Blood Count 4.29 10^6/uL (3.93-5.22) 09/28/21 21:45 09/28/21 Hemoglobin 13.5 g/dL (11.2-15.7) 09/28/21 21:45 09/28/21 Hematocrit 39.8 % (36.0-46.0) 09/28/21 21:45 09/28/21 Platelet Count 168 10^3/uL (130-400) 09/28/21 21:45 09/28/21 Complete Metabolic Panel: Sodium Level 133 mmol/L (136-145) L 09/16/21 11:03 09/16/21 Potassium Level 3.8 mmol/L (3.5-5.1) 09/16/21 11:03 09/16/21 Chloride Level 103 mmol/L (98-107) 09/16/21 11:03 09/16/21 Carbon Dioxide Level 21.5 mmol/L (21.0-32.0) 09/16/21 11:03 09/16/21 Blood Urea Nitrogen 12 mg/dL (7-18) 09/16/21 11:03 09/16/21 Creatinine 0.7 mg/dL (0.55-1.02) 09/16/21 11:03 09/16/21 Estimated GFR/1.73 m2 >= 60.00 (mL/min/1.73m2) 09/16/21 11:03 09/16/21 Calcium Level 8.6 mg/dL (8.5-10.1) 09/16/21 11:03 09/16/21 Albumin 2.4 g/dL (3.4-5.0) L 09/16/21 11:03 09/16/21 Glucose Level 94 mg/dL (74-106) 09/16/21 11:03 09/16/21 Liver Function Panel: Alanine Aminotransferase (ALT/SGPT) 32 U/L (14-59) 09/16/21 11:03 09/16/21 Aspartate Amino Transf (AST/SGOT) 25 U/L (15-37) 09/16/21 11:03 09/16/21 Coagulation Panel: No Data to Display Cardiac Panel: No Data to Display Arterial Blood Gas: No Data to Display Venous Blood Gas: No Data to Display Pancreas Panel: No Data to Display Thyroid Panel: No Data to Display Infectious Disease: Coronavirus (COVID-19)(PCR) Negative (Negative) 09/28/21 21:17 09/28/21 Coronavirus 2019 Source Nasal/Nares 09/28/21 21:17 09/28/21 Blood Cultures: No Data to Display Toxicology Panel: No Data to Display Panel: No Data to Display Anesthesia Assessment and Plan Anesthesia History Personal History: No History of Anesthesia Complications Family History: No Family History of Anesthesia Complications Exercise Tolerance Exercise Tolerance: Metabolic Equivalents>4 Pertinent Negatives Pertinent Negatives: No Symptoms of GERD Cardiac & Pulmonary Exam Cardiac Exam: Normal S1/S2 Heart Sounds Pulmonary Exam: Clear Bilateral Breath Sounds Implantable Cardiac Device Does patient have a Pacemaker or an ICD?: No Airway Exam Known Difficult Airway: No Mallampati Class: 2 Mouth Opening: Normal (> 3cm) Thyromental Distance: Greater than 3 cm Neck Range of Motion: Full ROM Neck Circumference: Normal Teeth Condition: Normal Dentition ASA Classification ASA Score: ASA 2 Emergency Case?: No NPO Status NPO Status: NPO Clears >2 hours, Solids >8 hours Status Status: Confirmed Anesthesia Plan Resuscitation Status: Full Code Anesthesia Technique: Epidural Anesthesia Airway Planned: Natural Airway Pain Management: Surgeon and patient request nerve block Monitors Used: Standard Monitors
--- NOTE | 2021-09-29 11:50 | PGE_ITS ---
Date of Service Date of service: 09/29/21 Time of Service: 11:51 Assessment and Plan Assessment and plan (1) Encounter for induction of labor: Status: Acute Assessment and plan: Will contact TRANSPORTATION PLANNER for epidural. Subjective Subjective Interval history since last seen: Pt becoming increasingly uncomfortable with contractions and desires an epidural for pain relief. Exam Manual OB Exam: dilated 7, effaced (90%) and station -2 Objective Last Vital Signs Temp 98.1 F 09/29/21 08:52 Pulse 86 09/29/21 11:46 Resp 16 09/29/21 08:52 BP 105/68 09/29/21 08:52 Pulse Ox 98 09/29/21 11:46 Laboratory Results - last 24 hr 09/28/21 09/28/21 09/28/21 21:17 21:45 21:45 WBC 7.94 RBC 4.29 Hgb 13.5 Hct 39.8 MCV 92.8 MCH 31.5 MCHC 33.9 RDW 13.5 Plt Count 168 MPV 10.4 COVID-19 Source Nasal/Nares SARS-CoV-2 (PCR) Negative Patient ABO/Rh O Positive Antibody Screen NEGATIVE
--- NOTE | 2021-09-29 12:04 | ANES.NEUR_ITS ---
Epidural/Spinal Catheter Date Performed: 09/29/21 Procedure Start: 11:48 Procedure Stop: 12:00 Requesting Provider: Elvira Real Procedure Location: Obstetrics Reason Performed: Labor Epidural Standard Monitors Applied: Blood Pressure and SpO2 Patient Position: Sitting Sedation Given (Indicate Dose Given): No Sedation given Patient Mental Status: Awake Sterility: Hand Hygiene, Surgical Cap, Surgical Mask, Sterile Gloves, Sterile Drape/Sheet and Chlorhexidine Procedure Location: L3-L4 Interspace Epidural Needle: Tuohy 17 Guage Needle Length: 3.5 Inch Needle Approach: Midline Epidural Procedure: Skin Prepped, Sterile Drape Placed, 1% Lidocaine to skin and subcutaneous tissue with 25G needle, Tuohy Needle placed, MRAY to Air Used, MARY to Saline Used, Epidural Catheter Placed, Negative Heme, Negative CSF Flow and Tuohy Needle Removed Catheter Placed?: Catheter Placed Test Dose (Indicate Dose Given): 5ml 1.5% Lidocaine with 1:200K Epinephrine Given and Negative Test Dose Loss of Resistance Depth (cm): 9 Catheter depth at skin (cm): 13 Dressing: [place] Dressing Placed, Mastisol Used and Dressing reinforced with Tape Epidural Provider Bolus (Indicate Dose Given): Total Ropivacaine 0.1% with Fentanyl 2mcg/ml Given from pump. (ml) Dose:: 10 ml Additives (Indicate Dose Given ): None Infusion Medication: Medication Infusion Began Medication Infusion: R opivacaine 0.1% with Fentanyl 2mcg/ml Maintenance Infusion Rate (ml/hour): 10 PCEA Bolus Dose (ml): 5 Block Level: T10 Paresthesia: None Ultrasound: Not Used Number of Attempts (See previous attempts in note section): 1 Procedure Tolerated: No Complications and Patient tolerated well Procedure Outcome: Successful Performed By: Hai Meza
[2021-09-29] MEDS: Lactated Ringers 500 ML IV (12:23)
--- NOTE | 2021-09-29 17:05 | OBVDS_ITS ---
Date of service: 09/29/21 Time of Service: 14:00 OB Labor/ Delivery Information Baby A Delivery Delivery Method: Spontaneaous Presentation: Cephalic Cephalic Position: Vertex Vertex Position: Right Occipital Anterior Cord Description-Baby A: 3 Vessels Cord Description Comment: Healthy normal appearing placenta Amniotic Fluid: Clear Estimated Blood Loss: 300 Delivery Outcome: Liveborn Infant Complications: None Note: The pt was found to be fully dilated. She pushed 50mins to deliver the infant's head in NARDA position followed by the shoulders and the rest of the body. The baby was placed on mom's abdomen. After >1min the cord was clamped x2 and cut. Cord blood collected. The placenta delivered with gentle cord traction and fundal massage and appeared intact. A shallow 2nd degree laceration was r epaired in the usual fashion with 3-0 vicryl. She started to have moderate blood flow and the uterus was found to be boggy. She was given IM pitocin since her IV had fallen out. She was then given 600mcg rectal misoprostol. After this the bleeding slowed and the fundus was firm with good hemostasis. Mom and baby stable at time of note. Providers Doctor: Elvira Real Nurse: Marcelina Armenta Nurse: Reyna Guzman Labor/Delivery Information Number of Babies in Womb: 1 Steroids Given: None Reason Steroids Not Administered: N/A Group Beta Strep: Positive Antibiotics Administered: Yes Number of Doses of Antibiotics: 2 Rubella Status: Immune Blood Type: O+ Varicella Immunity: Immune Medication in Delivery: IM pitocin, misoprostol 600 mg MD Maternal Complications: None Shoulder Dystocia: No Stages of Labor Onset of Labor Date: 09/28/21 Onset of Labor Time: 21:33 Complete Dilatation Date: 09/29/21 Complete Dilatation Time: 12:50 Labor - Stage 1 Duration: 24 hours and 0 minutes ROM Baby A: 09/29/21 ROM Baby A: 10:15 ROM Total Time- Baby A: [id number] Delivery Date-Baby A: 09/29/21 Infant Delivery Time-Baby A: 13:49 Labor Stage 2 Duration: 59 minutes Placenta Delivery Date-Baby A: 09/29/21 Placenta Delivery Time-Baby A: 13:54 Labor-Stage 3 Duration: 5 minutes Total Length of Labor-Baby A: 16 hours and 16 minutes Placenta Cultured: No Placenta Status: Delivered Baby A Infant Gender: Male Gestational Status: Term (39-41.6 wks) Gestational Age in Weeks/Days: 39 Weeks and 2 Days weight: 7 lb 11 oz Score-1 Minute Interval(Baby A) Heart Rate-1 minute: 100 BPM or Greater Respiratory Effort- 1 minute: Slow Respiration/Weak Cry Muscle Tone-1 minute: Active Movement Reflex Response-1 minute: Prompt Response Color-1 minute: Pallor or Cyanosis Total Score-1 minute: 7 Score-5 Minute Interval(Baby A) Heart Rate- 5 minute: 100 BPM or Greater Respiratory Effort-5 minute: Spontaneous/Strong Cry Muscle Tone-5 minute: Active Movement Reflex Response-5 minute: Prompt Response Color-5 minute: Bluish Hands or Feet Total Score- 5 minute: 9
--- NOTE | 2021-09-29 17:14 | W.ANESPOSTOP ---
Postoperative Evaluation Date, Time and Location Date Performed: 09/29/21 Time Performed: 16:58 Patient Location: Obstetrics Vital Signs Most Recent Imported Vital Signs: Most Recent Vital Signs Temp Pulse Resp BP Pulse Ox 36.7 C 109 H 16 116/67 98 09/29/21 08:52 09/29/21 14:33 09/29/21 08:52 09/29/21 14:33 09/29/21 13:02 Pain Score Most Recent Pain Score: Most Recent Pain Score Pain Level 0 09/28/21 21:30 Assessment Mental Status: Awake (Alert & Oriented to Patient Baseline) Airway and Respiratory Function: Patent airway with normal (patient baseline) respiratory exam Cardiovascular Function: Hemodynamically Stable Hydration Status: Adequately Hydrated Nausea & Vomiting: No Nausea or Vomiting Pain: Pt. Denies Any Pain Peripheral Nerve Block: Other (Epidural appropriately resolved, denied complaint, denied headache, denied backpain. Per RN catheter removed with tip intact.)
[2021-09-30] MEDS: Acetaminophen 325 MG TAB 650 MG PO ×2 (03:53→11:55)
[2021-09-30] MEDS: Ibuprofen 600 MG TAB PO ×2 (03:54→11:55)
[2021-09-30 04:06] VITALS: BP 120/71; PULSE 90; RESP 18; TEMP 36.7
[2021-09-30] MEDS: Docusate Sodium 100 MG CAP PO (07:46)
[2021-09-30] MEDS: Dibucaine 1% 28 GM TUBE TP (07:46)
[2021-09-30] MEDS: Hamamelis Leaf/Glycerin 100 EACH BOX PR (07:46)
[2021-09-30 07:49] VITALS: BP 110/69; PULSE 79; RESP 16; TEMP 36.6
--- NOTE | 2021-09-30 14:35 | OBPPV_ITS ---
Date of service: 09/30/21 Time of Service: 14:35 Assessment and Plan Assessment and plan (1) Vaginal delivery: Status: Acute Assessment and plan: day 1 spontaneous vaginal delivery without complications. Patient will continue with breast-feeding assistance throughout the day and plan for discharge home tomorrow. She remains comfortable at site of laceration repair. Subjective Subjective Patient comments: No complaints Patient's Mood: Minimal pain at laceration repair site. No nipple excoriation. [place] baby status: Nursing well ( sleeping this morning. Patient has been assisted by staffing consultant), Rooming in and Strong Bonding Observed [place] feeding status: Exclusively breast feeding Exam Physical Exam Vital signs: Temp Pulse Resp BP Pulse Ox 97.9 F 79 16 110/69 97 09/30/21 07:49 09/30/21 07:49 09/30/21 07:49 09/30/21 07:49 09/29/21 18:05 Vital Signs Reviewed: Yes Narrative: Estimate blood loss at the time of delivery 300 cc. Prior to delivery she had a normal hematocrit and hemoglobin. I recommended not obtaining labs. Constitutional Constitutional: no acute distress Respiratory Exam Respiratory Exam: Normal Cardiovascular Exam Cardiovascular Exam: Not Done Abdominal Exam Abdomen: Other (No focal tenderness) Fundal Exam Fundus: Below Umbilicus Rectal Exam Rectal Exam: Not Done Exam Perineum: Normal (No edema, no ecchymosis,) External: Present normal urethra appearance Extremities Exam Extremity Exam: Normal Back/Spine/Pelvis Exam Back Exam: Normal Skin Exam Skin Exam: Normal Neurological Exam Neurological Exam: Normal Psychiatric Exam Psychiatric Exam: Normal Results Hemoglobin/Hematocrit: Hgb 13.5 g/dL (11.2-15.7) 09/28/21 21:45 Hct 39.8 % (36.0-46.0) 09/28/21 21:45
[2021-09-30 20:04] VITALS: BP 109/70; PULSE 87; RESP 18; TEMP 36.7; O2SAT 96
[2021-10-01] MEDS: Ibuprofen 600 MG TAB PO (00:36)
[2021-10-01 09:45] VITALS: BP 116/76; PULSE 79; RESP 16; TEMP 36.6
--- NOTE | 2021-10-01 09:51 | DSE_ITS ---
Date of service: 10/01/21 Time of Service: 09:54 DS: Diagnosis Discharge Diagnosis (1) Vaginal delivery: Status: Acute Asessment and Plan: 09/29/2021. Shanti Priest. [id number] (2) Diabetes in : Status: Acute Asessment and Plan: Diet-controlled during the . Discharge Plan Disposition Patient Disposition: HOME Condition: Good Discharge Details Reason For Visit: IUP at 39W1D EGA,Diet-controlled GDM Admit Date/Time: 09/28/21 19:55 Admit Provider: Germaine Clark Attending Provider: Germaine Clark Primary Care Provider: Mei Loomis Hospital Course Hospital Course: Patient was admitted the eveningof underwent cervical ripening followed by oxytocin augmentation of labor next morning. She had a unremarkable spontaneous vaginal delivery later in the day. Post course has been complicated she has been breast-feeding and pumping. She has decided to supplement with formula feeding until she has established her milk supply. The plan is to [facility] for maternal assessment. Home Meds and New Rx's Prescriptions: Discontinued aspirin [Adult Low Dose Aspirin] 81 mg tablet,delayed release (DR/EC) 81 mg PO DAILY Qty: 90 3RF Rx Instructions: take one then next day take two and continue to alternate No Action epinephrine 0.3 mg/0.3 mL auto-injector 0.3 mg IM ONCE 0RF Plus (calcium carb) 27 mg iron- 1 mg tablet 1 tab PO DAILY Qty: 90 4RF (DME) blood-glucose meter Mis See Rx Instructions .ROUTE .MEDSUPPLY Qty: 1 0RF Rx Instructions: 4 times daily (DME) OneTouch Verio test strips Strip See Rx Instructions .ROUTE .MEDSUPPLY Qty: 100 4RF Rx Instructions: 4x/day magnesium oxide 400 mg (241.3 mg magnesium) tablet 400 mg PO QHS 0RF cholecalciferol (vitamin D3) 25 mcg (1,000 unit) capsule 25 mcg PO DAILY 0RF (DME) Blood Glucose Test Strip See Rx Instructions .ROUTE .MEDSUPPLY Qty: 50 6RF Rx Instructions: 4 times daily sertraline 50 mg tablet 100 mg PO DAILY Qty: 60 4RF (DME) lancets [FreeStyle Lancets] 28 gauge misc See Rx Instructions .ROUTE .MEDSUPPLY Qty: 100 3RF Rx Instructions: 4 times daily Discharge Instructions Additional Instructions: Call the [facility] wellness center and make a follow-up appointment. If you have any concerns or questions feel free to give a call to and asked to speak to the OB provider on-call. Taking daily aspirin and you can stop testing your blood sugars Stand Alone Forms: BC Instructions, BC Post Vaginal Deliver Activity:: Activity as Tolerated Equipment/Supplies:: No Equipment Needed Diet:: As Tolerated Discharge Data Discharge Date/Time-TO BE ENTERED AT DEPARTURE: 10/01/21 10:00 OB:DS Summary Summary Vaginal Delivery Method: Spontaneaous Episiotomy Description: None Laceration Extension: First Degree Contraception Discussed Contraception Discussed: Yes (Worse) Contraceptive Plan: IUD (Discussed during her course), Gender-Baby A: Male weight: 7 lb 11 oz Status at Discharge Functional status at discharge: independent ambulation Overall status at discharge: patient is progressing back to baseline Mental Status: mental status grossly normal Speech and Movement: speech and movement normal Mood: congruent mood Affect: normal affect Exam Physical Exam Vital signs: Temp Pulse Resp BP Pulse Ox 98.1 F 87 18 109/70 96 09/30/21 20:04 09/30/21 20:04 09/30/21 20:04 09/30/21 20:04 09/30/21 20:04 Constitutional Constitutional: no acute distress HEENT Exam HEENT Exam: Not Done Neck Exam Neck Exam: Normal Respiratory Exam Respiratory Exam: Normal Cardiovascular Exam Cardiovascular Exam: Not Done Abdominal Exam Abdomen: Other ([place] tender at fundus) Fundal Exam Fundus: Below Umbilicus Rectal Exam Rectal Exam: Other Extremities Exam Extremity Exam: Normal Back/Spine/Pelvis Exam Back Exam: Normal Skin Exam Skin Exam: Normal Neurological Exam Neurological Exam: Normal Psychiatric Exam Psychiatric Exam: Normal PFSH All Active Problems (Updated 10/01/21 @ 09:55 by Germaine Clark MD) Vaginal delivery (Acute) 09/29/2021. Shanti Priest. [id number] Encounter for induction of labor (Acute) GBS (group B Streptococcus carrier), +RV culture, currently (Acute) Encounter for supervision of normal first , third trimester (Acute) Diabetes in (Acute) Right hip pain (Acute) History of low back pain (Acute) Adult BMI 35.0-35.9 kg/sq m (Acute) Nearsightedness (Acute) Anxiety (Chronic) (Acute) Missed menses (Acute) IUD surveillance (Acute) Mar 2019 Bee sting allergy (Acute) Migraine (Chronic) Medical History Bee sting allergy IUD surveillance mitchMar 2019 Migraine Surgical History H/O knee surgery [place] teeth extracted Family History (Updated 03/28/21 @ 10:04 by Alicia Cole CNM) Mother VTE (venous thromboembolism) Celiac disease Hypertension Depression Hyperlipidemia Father Depression Hypertension Maternal Grandmother Stroke Social History Smoking/Tobacco Use Status: Never Smoking risk assessment performed?: Yes Alcohol Intake: never Drug use: Never Sexually active: Yes Current gender identity: female Do you feel safe at home: Yes Do you feel safe in your relationship?: Yes Female Reproductive History Menstrual Age of Menarche: 14 Duration of menses: 3-5 days control method: none History History 1 Para 0 Hx # Term Pregnancies 0 Multiple births 0 Hx # Pregnancies 0 Ectopic pregnancies 0 AB induced 0 Hx Number of Living Children 0 AB spontaneous 0 DS: Data Vitals/I&O Vitals and I&O: Vital Signs Temperature 98.1 F 09/30/21 20:04 Pulse 87 09/30/21 20:04 Pulse Rhythm Regular 10/01/21 07:30 Respiratory Rate 18 09/30/21 20:04 Respiratory Depth Normal 09/30/21 07:47 Blood Pressure 109/70 09/30/21 20:04 Blood Pressure Mean 83 09/30/21 20:04 Pulse Oximetry 96 09/30/21 20:04 Oxygen Delivery Method Room Air 09/28/21 21:30 Oxygen Flow Rate 0 09/28/21 21:30 Pain Level 5 10/01/21 00:36 Intake & Output 09/30/21 09/30/21 10/01/21 11:59 23:59 11:59 Intake Total 1000 / 1000 Output Total 1400 / 1400 Balance -400 / -400 Intake: IV 1000 / 1000 Output: Urine 1400 / 1400
[2021-10-01] MEDS: Acetaminophen 325 MG TAB 650 MG PO (10:19)
== END 2021-10-01 12:45 | disposition home or self-care (01) | DRG 806 ==
PROVIDERS: Admitting Provider Obstetrics & Gynecology Gynecology; PCP Nurse Practitioner Family; Visit Provider Obstetrics & Gynecology Gynecology
DX: O24.420 Gestational diabetes mellitus in childbirth, diet controlled (principal); O99.354 Diseases of the nervous system complicating childbirth; Z37.0 Single live birth; O24.429 Gestational diabetes mellitus in childbirth, unspecified control; O99.344 Other mental disorders complicating childbirth; F41.9 Anxiety disorder, unspecified; G43.909 Migraine, unspecified, not intractable, without status migrainosus; O70.1 Second degree perineal laceration during delivery; Z3A.39 39 weeks gestation of pregnancy
CPT/HCPCS: 85027; 86850; 86900; 86901; 87635; 59200; J2540

== ENCOUNTER 2022-05-11 20:59 | Outpatient (REF) | payer BC, SELFPAY ==
[2022-05-11 16:02] LABS: Bacteria Negative HPF (Negative); C & S Indicated? C&S Done As Ordered; Casts Negative LPF (Negative); Crystals Negative HPF (Negative); Epithelial Cells Negative HPF (Negative); Mucus Negative (Negative); Other Cells Negative (Negative)
[2022-05-13 15:03] LABS: Chlamydia Result Negative (Negative); GC Result Negative (Negative)
== END 2022-05-11 21:00 | disposition home or self-care (01) ==
LOC: LBN 20:59
PROVIDERS: PCP Nurse Practitioner Family; Visit Provider Physician Assistant Medical
DX: R30.9 Painful micturition, unspecified (principal)
CPT/HCPCS: 87491; 87591; 81015; 87086; 87480; 87510; 87660

== ENCOUNTER 2023-02-28 17:35 | Outpatient (REF) | payer BC, SELFPAY ==
[2023-02-28 20:05] LABS: ALT 30 U/L (14-59); AST 21 U/L (15-37); Albumin 3.7 g/dL (3.4-5.0); Alkaline Phosphatase 75 U/L (46-116); Anion Gap 8.9 mmol/L (3-11); BUN 18 mg/dL (7-18); Bilirubin, Total 0.3 mg/dL (0.2-1.0); CO2 24.1 mmol/L (21.0-32.0); CREATININE 0.8 mg/dL (0.55-1.02); Calcium 8.8 mg/dL (8.5-10.1); Chloride 107 mmol/L (98-107); Estimated GFR 97.87 (mL/min/1.73m2); Glucose 103 mg/dL (74-106); Potassium 3.9 mmol/L (3.5-5.1); Sodium 140 mmol/L (136-145); TSH (W/Ref FT4) 2.53 uIU/mL (0.36-3.74); Total Protein 6.9 g/dL (6.4-8.2)
== END 2023-02-28 17:36 | disposition home or self-care (01) ==
LOC: NCHCN 17:35
PROVIDERS: PCP Nurse Practitioner Family; Visit Provider Physician Assistant Medical
DX: R51.9 Headache, unspecified (principal)
CPT/HCPCS: 80053; 83735; 84443

== ENCOUNTER 2023-03-21 02:49 | Outpatient (CLI) | payer BC, SELFPAY ==
[2023-03-21 14:36] LABS: Abs Immature Grans 0.02 10^3/uL (0.0-0.06); Absolute Basophil Count 0.03 10^3/uL (0.0-0.2); Absolute Lymphocyte Count 2.15 10^3/uL (1.2-3.4); Absolute Neutrophil Count 4.94 10^3/uL (1.2-6.7); Basophils % 0.4; Eosinophils % 2.6; HCT 42.6 % (36.0-46.0); HGB 14.4 g/dL (11.2-15.7); Immature Grans % 0.3; Lymphocytes % 27.8; MCH 29.3 pg (27.0-33.0); MCHC 33.8 % (32.0-36.0); MCV 87 fL (80-95); MPV 9.9 fL (8.0-11.0); Monocytes % 5.2; Neutrophils % 63.7; Platelet Count 208 10^3/uL (130-400); RBC 4.92 10^6/uL (3.93-5.22); RDW 12.4 % (11.7-14.6); RDW-SD 39.8 fL; WBC 7.74 10^3/uL (4.4-10.8)
== END 2023-03-21 02:50 | disposition home or self-care (01) ==
LOC: LBO 02:49
PROVIDERS: PCP Nurse Practitioner Family; Visit Provider Nurse Practitioner Family
DX: R51.9 Headache, unspecified (principal)
CPT/HCPCS: 36415; 85025

== ENCOUNTER 2023-11-06 18:06 | Outpatient (REF) | payer BC, SELFPAY ==
--- NOTE | 2023-11-06 14:45 | PAPFT_PTH ---
PATIENT: Jocelyn Saalzar LOC: [facility]#:[id number] AGE/SX: 38/F ROOM: RE11/06/[address]: Clarisa Gardner : 1985 BED: DIS: 11/06/2023 SPEC #: [id number] RECD: 11/06/23 18:18 STATUS: SARA REQ #: [id number] PRUDENCIO: 11/06/23 14:[address]: Clarisa Gardner DEPT: [facility] Cytology RECD BY: Bindu Hernandez ENTERED: 11/06/23 18:18 SP TYPE: PAPFT OTHR DR: Mei Loomis Tissues: 1 - CX/ENDOCX FOR PAP SMEARS Procedures: PAP THIN PREP/UVM Screening HPV DNA PROBE Comments: [id number]
[2023-11-06 18:48] LABS: Hemoglobin A1C 5.9 % (<5.7)
[2023-11-06 19:06] LABS: Calculated LDL 68 mg/dL (<100); Cholesterol 124 mg/dL (<200); HDL Cholesterol 40 mg/dL (40-60); Triglyceride 81 mg/dL (<150); Vitamin B12 1202 pg/mL (193-986)
== END 2023-11-06 18:07 | disposition home or self-care (01) ==
LOC: NCHCN 18:06
PROVIDERS: PCP Nurse Practitioner Family; Visit Provider Physician Assistant Medical
DX: Z01.419 Encounter for gynecological examination (general) (routine) without abnormal findings (principal); Z00.00 Encounter for general adult medical examination without abnormal findings
CPT/HCPCS: 80061; 88142; 82607; 83036; 87624

== ENCOUNTER 2024-05-13 16:14 | Outpatient (CLI) | payer BC, SELFPAY ==
--- NOTE | 2024-05-13 16:34 | DI.RAD_ITS ---
Exam(s) XR CHEST 2V PA LATERAL EXAM: XR CHEST 2V PA LATERAL CLINICAL HISTORY: Cough, R05.9 TECHNIQUE: 2D digital imaging was performed. Two views. COMPARISON: No exams were available for comparison FINDINGS: HEART: Normal size. Aorta: Not dilated. PULMONARY VASCULATURE: Normal. MEDIASTINUM: Unremarkable. LUNGS: Clear. PLEURAL SPACE: No pleural effusion or pneumothorax. BONE:Unremarkable for age. SOFT TISSUES: Unremarkable. IMPRESSION: No acute abnormality. DATA REPOSITORY: RADIATION DOSE DELIVERED:
== END 2024-05-13 16:34 ==
LOC: DI 16:15
PROVIDERS: PCP Nurse Practitioner Family; Visit Provider Physician Assistant Medical
DX: R05.9 Cough, unspecified (principal)
CPT/HCPCS: 71046

== ENCOUNTER 2024-05-20 14:03 | Outpatient (REF) | payer BC, SELFPAY ==
[2024-05-20 15:15] LABS: Abs Immature Grans 0.03 10^3/uL (0.0-0.06); Absolute Basophil Count 0.02 10^3/uL (0.0-0.2); Absolute Eosinophil Count 0.01 10^3/uL (0.0-0.7); Absolute Lymphocyte Count 1.34 10^3/uL (1.2-3.4); Absolute Monocyte Count 0.09 10^3/uL (0.1-0.8); Absolute Neutrophil Count 6.85 10^3/uL (1.2-6.7); Basophils % 0.2 %; Eosinophils % 0.1 %; HCT 44.6 % (36.0-46.0); HGB 14.9 g/dL (11.2-15.7); Immature Grans % 0.4 %; Lymphocytes % 16.1 %; MCH 29.2 pg (27.0-33.0); MCHC 33.4 % (32.0-36.0); MCV 87 fL (80-95); MPV 10.3 fL (8.0-11.0); Monocytes % 1.1 %; Neutrophils % 82.1 %; Platelet Count 243 10^3/uL (130-400); RBC 5.11 10^6/uL (3.93-5.22); RDW 13.3 % (11.7-14.6); RDW-SD 42.4 fL; WBC 8.34 10^3/uL (4.4-10.8)
[2024-05-20 16:53] LABS: ALT 39 U/L (14-59); AST 25 U/L (15-37); Albumin 3.7 g/dL (3.4-5.0); Alkaline Phosphatase 77 U/L (46-116); Bilirubin, Direct < 0.1 mg/dL (0.0-0.2); Bilirubin, Total 0.28 mg/dL (0.2-1.0); Total Protein 7.3 g/dL (6.4-8.2)
== END 2024-05-20 14:04 | disposition home or self-care (01) ==
LOC: NCHCN 14:03
PROVIDERS: PCP Nurse Practitioner Family; Visit Provider Physician Assistant Medical
DX: K76.0 Fatty (change of) liver, not elsewhere classified (principal); R73.03 Prediabetes
CPT/HCPCS: 80076; 83036; 85025

== ENCOUNTER 2024-11-10 20:24 | Outpatient (REF) | payer BC, SELFPAY ==
[2024-11-10 20:16] LABS: Calculated LDL 81 mg/dL (<100); Cholesterol 155 mg/dL (<200); HDL Cholesterol 56 mg/dL (>or=50); Triglyceride 92 mg/dL (<150)
[2024-11-10 20:24] LABS: Hemoglobin A1C 5.8 % (<5.7)
== END 2024-11-10 20:25 | disposition home or self-care (01) ==
LOC: NCHCN 20:24
PROVIDERS: Visit Provider Physician Assistant Medical
DX: R73.03 Prediabetes (principal)
CPT/HCPCS: 80061; 83036

== ENCOUNTER 2024-11-14 00:11 | Outpatient (CLI) | payer BC, SELFPAY ==
--- NOTE | 2024-11-14 08:15 | DI.RAD_ITS ---
Exam(s) XR HIP RT COMPLETE AP PELVIS EXAM: XR HIP RT COMPLETE AP PELVIS CLINICAL HISTORY: Rt hip pain, M25.551. TECHNIQUE: 2D digital imaging was performed. Two views COMPARISON: CT CT renal colic wo from 05/30/2018 CR XR lumbar spine complete from 11/25/2018 FINDINGS: No acute fracture is present. No bony destructive lesion is seen. There is increased sclerosis at the superior acetabulum with a few subchondral cysts. The findings appear similar to the prior CT scan. There is mild spurring at the superior acetabulum and superior femoral head. There is mild right h ip joint space narrowing. The left hip joint space is maintained. There is mild spurring of both SI joints and pubic symphysis. IMPRESSION: Mild degenerative changes of the right hip. Stable sclerosis and subchondral cysts in the superior a cetabulum. DATA REPOSITORY: RADIATION DOSE DELIVERED:
== END 2024-11-14 00:31 ==
LOC: DI 00:11
PROVIDERS: Visit Provider Physician Assistant Medical
DX: M16.11 Unilateral primary osteoarthritis, right hip (principal)
CPT/HCPCS: 73502

== ENCOUNTER 2025-07-13 01:27 | Outpatient (CLI) | payer BC, SELFPAY ==
[2025-07-13 15:59] LABS: Abs Immature Grans 0.03 10^3/uL (0.0-0.06); HCT 40.1 % (36.0-46.0); HGB 13.7 g/dL (11.2-15.7); Immature Grans % 0.3 %; MCH 29.7 pg (27.0-33.0); MCHC 34.2 % (32.0-36.0); MCV 87 fL (80-95); MPV 10.0 fL (8.0-11.0); Platelet Count 201 10^3/uL (130-400); RBC 4.62 10^6/uL (3.93-5.22); RDW 12.9 % (11.7-14.6); RDW-SD 40.7 fL; WBC 8.93 10^3/uL (4.4-10.8)
[2025-07-13 16:17] LABS: Hemoglobin A1C 5.5 % (<5.7)
[2025-07-13 16:56] LABS: Vitamin D 25 Total 62 ng/mL (30-100)
[2025-07-13 16:58] LABS: ALT 45 U/L (10-49); AST 28 U/L (<34); Albumin 4.0 g/dL (3.2-5.0); Alkaline Phosphatase 55 U/L (46-116); Anion Gap 9 mmol/L (3-11); BUN 14 mg/dL (9-23); Bilirubin, Total 0.30 mg/dL (0.2-1.2); CO2 25.0 mmol/L (20.0-31.0); Calcium 9.4 mg/dL (8.3-10.6); Chloride 105 mmol/L (98-107); Glucose 88 mg/dL (74-106); Potassium 3.7 mmol/L (3.5-5.1); Sodium 139 mmol/L (136-145); Total Protein 6.7 g/dL (5.7-8.2)
[2025-07-14 00:55] LABS: Hepatitis C Ab w Rflx HCV PCR Negative (Negative)
[2025-07-14 01:00] LABS: HIV-1/2 Ag & Ab Screen Negative (Negative)
[2025-07-14 10:50] LABS: Rubella IgG Ab (UVM) Positive (See Note)
[2025-07-15 11:19] LABS: Chlamydia Result Negative (Negative); GC Result Negative (Negative)
[2025-07-15 21:18] LABS: Syphilis IgG w/Reflex Nonreactive (Nonreactive)
== END 2025-07-13 01:28 | disposition home or self-care (01) ==
LOC: LBO 01:27 → LBN 18:07
PROVIDERS: Advanced Practice Midwife; PCP Physician Assistant Medical; Visit Provider Advanced Practice Midwife
DX: Z68.41 Body mass index [BMI] 40.0-44.9, adult (principal); R73.03 Prediabetes; K76.0 Fatty (change of) liver, not elsewhere classified; Z34.91 Encounter for supervision of normal pregnancy, unspecified, first trimester; Z86.39 Personal history of other endocrine, nutritional and metabolic disease
CPT/HCPCS: 36415; 80053; 81329; 82306; 86787; 86803; 86850; 86900; 86901; 87340; 87389; 87491; 87591; 83036; 85025; 86762; 86780; 87086